=== PATIENT | male | born 1940 | race African-American/Black ===

== ENCOUNTER 2016-08-07 12:21 | Observation (INO) | payer OTHER ==
[2016-08-07] VITALS (11 sets, daily range): BP systolic 98–196; BP diastolic 61–103; PULSE 52–80; RESP 16–18; TEMP 97.7–98.4; O2SAT 98–100
[~2016-08-07] VITALS: Ht 193 cm; Wt 83.5 kg
[~2016-08-07 12:21] MED LIST: LISI-360 PO; LORA0.5T PO
[2016-08-07] MEDS ORDERED: LISI-515 PO (14:01)
[2016-08-07] MEDS ORDERED: PARO40TA2 PO (14:01)
[2016-08-07] MEDS ORDERED: LORA-373 PO (14:01)
--- NOTE | 2016-08-07 14:24 | PD ---
HPI Chief Complaint: Cardiac Complaint Time Seen by Provider: 14:19 Travel History International Travel<30 days: No Contact w/Intl Traveler<30days: No Traveled to known affect area: No History of Present Illness HPI 76-year-old male presents to the emergency department for evaluation of left- sided chest pain that has been intermittent over the past 2-3 months, but has become more frequent and worse over the past week. The patient reports intermittent dizziness and weakness as well, but denies any at this time. He has no chest pain at this time. Patient states that he uses Flonase nasal spray which will help his dizziness. Patient denies any shortness of breath. No abdominal pain. No nausea, vomiting, diarrhea. No radiation of the pain. He states he had similar pain a couple of years ago and had a Holter monitor by a case maker with the PA. He denies any recent stress test or cardiac catheterization. He does have history of hypertension, depression, anxiety. Patient had varicose veins removed from the bilateral lower extremities in May. No recent travel. No hemoptysis. No history of DVT or PE. Patient states that his chest pain is not brought on by movement and cannot recall any exacerbating factors. No leg edema. No fevers. Patient denies any history of DC or CHF. PFSH Past Medical History Arthritis: Yes Anxiety: Yes Cardiovascular Problems: Yes Chest Pain: Yes Diminished Hearing: No Genitourinary: Yes (PROSTATE) Hypertension: Yes Tetanus Vaccination: > 5 Years Influenza Vaccination: Yes Past Surgical History Genitourinary Surgery: Yes (PROSTATE) Social History Alcohol Use: No Tobacco Use: No Substance Use: No Allergies-Medications (Allergen,Severity, Reaction): Coded Allergies: No Known Allergies (Unverified , 08/07/16) Reported Meds & Prescriptions Reported Meds & Active Scripts Active Reported Paroxetine (Paroxetine HCl) 40 Mg Tab 40 Mg PO HS Lisinopril 20 Mg Tab 20 Mg PO HS Lorazepam 0.5 Mg Tab 0.5 Mg PO BID PRN Review of Systems Except as stated in HPI: all other systems reviewed are Neg Physical Exam Narrative GENERAL: Well-nourished, well-developed male patient, afebrile. SKIN: Focused skin assessment warm/dry. HEAD: Normocephalic. Atraumatic. ENT: Mucosa pink and moist. No erythema or exudates. No uvular edema. No uvular , palatal, or tonsillar deviation. Airway patent. Bilateral tympanic membranes are clear without erythema or perforation. EYES: No scleral icterus. No injection or drainage. NECK: Supple, trachea midline. No JVD or lymphadenopathy. CARDIOVASCULAR: Regular rate and rhythm without murmurs, gallops, or rubs. RESPIRATORY: Breath sounds equal bilaterally. No accessory muscle use. Lungs sounds are clear to auscultation. GASTROINTESTINAL: Abdomen soft, non-tender, nondistended. MUSCULOSKELETAL: No cyanosis, or edema. BACK: Nontender without obvious deformity. No CVA tenderness. NEUROLOGICAL: Awake and alert. Cranial nerves II through XII intact. Motor and sensory grossly within normal limits. Five out of 5 muscle strength in all muscle groups. Normal speech. Data Data Last Documented VS Vital Signs Date Time Temp Pulse Resp B/P Pulse Ox O2 Delivery O2 Flow Rate FiO2 08/07/16 15:24 67 16 186/94 100 Room Air 08/07/16 12:23 98.2 Orders Electrocardiogram (08/07/16 ) Basic Metabolic Panel (Bmp) (08/07/16 14:18) Ckmb (Isoenzyme) Profile (08/07/16 14:18) Complete Blood Count With Diff (08/07/16 14:18) Magnesium (Mg) (08/07/16 14:18) Troponin I (08/07/16 14:18) Chest, Single Ap (08/07/16 14:18) Ecg Monitoring (08/07/16 14:18) Bilateral Bp Monitoring (08/07/16 14:18) Iv Access Insert/Monitor (08/07/16 14:18) Oximetry (08/07/16 14:18) Oxygen Administration (08/07/16 14:18) Aspirin Chew (Aspirin Chew) (08/07/16 14:30) Sodium Chloride 0.9% Flush (Ns Flush) (08/07/16 14:30) Labs Laboratory Tests Test 08/07/16 14:20 White Blood Count 4.2 TH/MM3 Red Blood Count 4.51 MIL/MM3 Hemoglobin 13.4 GM/DL Hematocrit 39.3 % Mean Corpuscular Volume 87.1 FL Mean Corpuscular Hemoglobin 29.6 PG Mean Corpuscular Hemoglobin 34.0 % Concent Red Cell Distribution Width 14.1 % Platelet Count 149 TH/MM3 Mean Platelet Volume 8.5 FL Neutrophils (%) (Auto) 67.7 % Lymphocytes (%) (Auto) 22.8 % Monocytes (%) (Auto) 8.2 % Eosinophils (%) (Auto) 0.8 % Basophils (%) (Auto) 0.5 % Neutrophils # (Auto) 2.8 TH/MM3 Lymphocytes # (Auto) 1.0 TH/MM3 Monocytes # (Auto) 0.3 TH/MM3 Eosinophils # (Auto) 0.0 TH/MM3 Basophils # (Auto) 0.0 TH/MM3 CBC Comment DIFF FINAL Differential Comment Sodium Level 142 MEQ/L Potassium Level 4.3 MEQ/L Chloride Level 107 MEQ/L Carbon Dioxide Level 31.5 MEQ/L Anion Gap 4 MEQ/L Blood Urea Nitrogen 15 MG/DL Creatinine 1.29 MG/DL Estimat Glomerular Filtration 66 ML/MIN Rate Random Glucose 87 MG/DL Calcium Level 8.8 MG/DL Magnesium Level 2.4 MG/DL Total Creatine Kinase 90 U/L Troponin I LESS THAN 0.02 NG/ML MDM Medical Decision Making Medical Screen Exam Complete: Yes Emergency Medical Condition: Yes Medical Record Reviewed: Yes Interpretation(s) Last Impressions Chest X-Ray 08/07/16 1418 Signed Impressions: Service Date/Time: Sunday, August 07, 2016 14:27 - CONCLUSION: No acute disease. Rufino Roldan MD FACR Differential Diagnosis ACS vs. chest wall pain vs. anxiety vs. electrolyte abnormality vs. PNA Narrative Course 76 year old male presents to the emergency department for evaluation of intermittent left sided chest pain over the past 2-3 months. EKG shows Sinus bradycardia, HR 56, with a right BBB. CBC, BMP, magnesium, CK, troponin are ordered and pending. Chest x-ray is ordered and pending. Patient is given ASA 162 mg PO. CBC shows no acute abnormality. BMP shows no acute abnormality. Magnesium is 2.4. CK is 90. Troponin is less than 0.02. Chest x-ray shows no acute disease. I discussed the case with my attending physician, Dr. Méndez, who agrees with plan and disposition. Patient will be admitted the chest pain center for further evaluation. The patient agrees to this. Diagnosis Primary Impression: Chest pain Qualified Code: R07.9 - Chest pain, unspecified type Admitting Information Admitting Physician Requests: Observation Roxana Cardona Aug 07, 2016 14:24
[2016-08-07] MEDS ORDERED: SODIUM CHLORIDE 0.9% FLUSH 10 ML FLUSH IVF PRN (14:30)
[2016-08-07] MEDS ORDERED: ASPIRIN 81 MG CHEW TAB PO ONE (14:30)
[2016-08-07 15:11] LABS: AUTOMATED NEUTROPHIL # 2.8 TH/MM3 (1.8-7.7); BASOPHIL % 0.5 % (0.0-2.0); EOSINOPHIL % 0.8 % (0.0-4.0); HEMATOCRIT 39.3 % (39.0-51.0); HEMO FLAGS DIFF FINAL; LYMPH % 22.8 % (9.0-44.0); MEAN CELL VOLUME 87.1 FL (80.0-100.0); MEAN CORPUSCULAR HEMOGLOBIN 29.6 PG (27.0-34.0); MONO % 8.2 % (0.0-8.0); NEUT % 67.7 % (16.0-70.0); PLATELET COUNT 149 TH/MM3 (150-450); RED BLOOD COUNT 4.51 MIL/MM3 (4.50-5.90); RED CELL DISTRIBUTION WIDTH 14.1 % (11.6-17.2); WHITE BLOOD COUNT 4.2 TH/MM3 (4.0-11.0)
--- NOTE | 2016-08-07 15:12 | RADRPT ---
EXAM DATE/TIME: 08/07/2016 14:27 [facility] COMPARISON: CHEST SINGLE AP, November 30, 2012, 9:46. INDICATIONS : Chest pain. MEDICAL HISTORY : Hypertension. SURGICAL HISTORY : None. ENCOUNTER: Initial ACUITY: 4 - 6 months PAIN SCORE: 8/10 LOCATION: Bilateral chest FINDINGS: A single view of the chest demonstrates the lungs to be symmetrically aerated without evidence of mas s, infiltrate or effusion. The cardiomediastinal contours are unremarkable. Osseous structures are intact. CONCLUSION: No acute disease. Rufino Roldan MD FACR on August 07, 2016 at 15:10 Board Certified Radiologist. This report was verified electronically.
[2016-08-07 15:29] LABS: ANION GAP 4 MEQ/L (5-15); BICARBONATE 31.5 MEQ/L (21.0-32.0); BLOOD UREA NITROGEN 15 MG/DL (7-18); CHLORIDE 107 MEQ/L (98-107); GLOMERULAR FILTRATION RATE 66 ML/MIN (>89); MAGNESIUM 2.4 MG/DL (1.5-2.5); POTASSIUM 4.3 MEQ/L (3.5-5.1); SODIUM (NA) 142 MEQ/L (136-145)
[2016-08-07 15:39] LABS: CREATINE KINASE 90 U/L (39-308)
[2016-08-07] MEDS ORDERED: cloNIDine HCL 0.1 MG TAB PO PRN (16:45)
[2016-08-07] MEDS ORDERED: LORazepam 0.5 MG TAB PO PRN (16:45)
--- NOTE | 2016-08-07 16:50 | HHI.HP ---
[facility] Primary Care Physician Awa Whipple MD Chief Complaint Chest pain History of Present Illness This is a 76-year-old male that presents to the ED via private vehicle with his with a complaint of 2 years of essentially daily chest discomfort. It can occur once a day or can occur several times a day. He describes a sharp left- sided chest discomfort that will last several seconds. It is not related to exertion. He had an episode 3 or 4 days ago where he felt like he was about to pass out while he was at the store. This concerned him and he discussed it with his who prompted him to come to the ED today. He does not have associated shortness of breath, nausea, or diaphoresis. He has discussed this with his primary care physician Dr. Whipple who tell him that things are okay and to continue taking his medications. He has hypertension. A few weeks ago he began having hypotension all taking lisinopril 20 mg daily in the evening and amlodipine 5 mg daily. His amlodipine was discontinued however now he has been hypertensive averaging in the 180s. He has not discuss this with his primary care physician. He cannot recall having a prior stress test but states he had a Holter monitor about 5 years ago at the [facility] and believes that it was okay. Denies recent illnesses. Denies fevers or chills. Review of Systems General: Patient denies fevers, chills recent, and recent travel HEENT: Patient denies headache, sore throat, difficulty swallowing. Cardiovascular: Has the chest discomfort as mentioned above. Denies sensation of heart beating rapidly or irregularly. No syncope. He had a episode 3 or 4 days ago while at the store where he felt he could have passed out. Respiratory: Denies shortness of breath or inspirational chest discomfort. Denies coughing wheezing or hemoptysis. GI: Patient denies nausea, vomiting, diarrhea, abdominal pain, bloody stools. Musculoskeletal: Patient denies joint pain or edema. Denies calf pain or edema. Neurovascular: Patient denies numbness, tingling, weakness in extremities. Denies headache. Endocrine: Denies polyuria and polydipsia. Hematologic: Denies easy bruising. Skin: Denies rash or itching. Past Family Social History Allergies: Coded Allergies: No Known Allergies (Unverified , 08/07/16) Past Medical History Hypertension, neuropathy in feet. Denies hyperlipidemia, CAD, and diabetes. Past Surgical History Noncontributory. Reported Medications Reported Meds & Active Scripts Active Reported Paroxetine (Paroxetine HCl) 40 Mg Tab 40 Mg PO HS Lisinopril 20 Mg Tab 20 Mg PO HS Lorazepam 0.5 Mg Tab 0.5 Mg PO BID PRN Active Ordered Medications Current Medications Medications (Trade) Dose Ordered Sig/Maribel Route Start Time Stop Time Status Last Admin (NS Flush) 2 ml UNSCH PRN IVF 08/07/16 14:30 08/07/16 14:24 Family History Denies family history of CAD. Social History Patient quit smoking 55 years ago. He denies alcohol or illicit drugs. He is . Physical Exam Vital Signs Vital Signs Date Time Temp Pulse Resp B/P Pulse Ox O2 Delivery O2 Flow Rate FiO2 08/07/16 15:24 67 16 186/94 100 Room Air 08/07/16 14:24 100 Room Air 08/07/16 14:24 17 100 Room Air 08/07/16 14:20 58 17 180/103 100 Room Air 175/93 08/07/16 14:11 60 17 192/100 100 Room Air 08/07/16 14:07 58 17 99 Room Air 08/07/16 12:23 98.2 57 16 166/82 98 Physical Exam GENERAL: This is a well-nourished, well-developed patient, in no apparent distress. Patient speaks in clear complete sentences. Patient is pleasant. HEENT: Head is atraumatic and normocephalic. Neck is supple without lymphadenopathy and trachea is midline. No JVD or carotid bruits. CARDIOVASCULAR: Regular rate and rhythm without murmurs, gallops, or rubs. RESPIRATORY: Clear to auscultation. Breath sounds equal bilaterally. No wheezes , rales, or rhonchi. Chest wall is nontender. No use of accessory muscles. GASTROINTESTINAL: Abdomen is nontender, nondistended. Abdomen soft. No obvious pulsatile mass or bruit. No CVA tenderness. Strong femoral pulses bilaterally. Normal bowel sounds in all quadrants. MUSCULOSKELETAL: Patient is moving upper and lower extremities freely. No calf tenderness or edema, no Homans sign. Strong pulses in upper and lower extremities. NEUROLOGICAL: Patient is alert and oriented. Cranial nerves 2-12 are grossly intact. No focal deficits and speech is clear. SKIN: No rash and turgor is normal. Laboratory Laboratory Tests Test 08/07/16 14:20 White Blood Count 4.2 Red Blood Count 4.51 Hemoglobin 13.4 Hematocrit 39.3 Mean Corpuscular Volume 87.1 Mean Corpuscular Hemoglobin 29.6 Mean Corpuscular Hemoglobin 34.0 Concent Red Cell Distribution Width 14.1 Platelet Count 149 Mean Platelet Volume 8.5 Neutrophils (%) (Auto) 67.7 Lymphocytes (%) (Auto) 22.8 Monocytes (%) (Auto) 8.2 Eosinophils (%) (Auto) 0.8 Basophils (%) (Auto) 0.5 Neutrophils # (Auto) 2.8 Lymphocytes # (Auto) 1.0 Monocytes # (Auto) 0.3 Eosinophils # (Auto) 0.0 Basophils # (Auto) 0.0 CBC Comment DIFF FINAL Differential Comment Sodium Level 142 Potassium Level 4.3 Chloride Level 107 Carbon Dioxide Level 31.5 Anion Gap 4 Blood Urea Nitrogen 15 Creatinine 1.29 Estimat Glomerular Filtration 66 Rate Random Glucose 87 Calcium Level 8.8 Magnesium Level 2.4 Total Creatine Kinase 90 Troponin I LESS THAN 0.02 Result Diagram: 08/07/16 1420 08/07/16 1420 Imaging Last 48 hours Impressions Chest X-Ray 08/07/16 1418 Signed Impressions: Service Date/Time: Sunday, August 07, 2016 14:27 - CONCLUSION: No acute disease. Rufino Roldan MD FACR Course EKG has sinus bradycardia rate of 56 with a right bundle branch block. Assessment and Plan Assessment and Plan * Atypical chest pain: Patient will continue to have serial cardiac enzymes and EKGs for ruling out purposes. He will be seen by Dr. Young of cardiology in the chest pain center in the morning. He will likely of a stress test if he rules out. Patient states he can go on a treadmill so he will likely have a ETT or a nuclear ETT. Likely be discharged if the stress test is nonischemic with instructions to follow-up with his primary care physician. * Hypertension: Patient states that amlodipine in addition to the lisinopril was causing hypotension in the amlodipine was discontinued however lisinopril by itself is not working enough. He thinks he is on amlodipine 5 mg. We will continue his lisinopril and have Catapres when necessary. Further plan pending Dr. Young's evaluation but possibly a low-dose of amlodipine. Patient is stable at this time. He is agreeable to this plan. Rush Fitzgerald Aug 07, 2016 16:50
[2016-08-07] MEDS ORDERED: ACETAMINOPHEN/HYDROcodone 325 MG/7.5 MG TAB PO PRN (17:00)
[2016-08-07] MEDS ORDERED: SODIUM CHLORIDE 0.9% FLUSH 5 ML FLUSH IVF PRN (17:00)
[2016-08-07] MEDS ORDERED: ACETAMINOPHEN 500 MG CPLT PO PRN (17:00)
[2016-08-07] MEDS ORDERED: ONDANSETRON HCL 4 MG/2 ML VIAL IV PRN (17:00)
[2016-08-07] MEDS: PANTOPRAZOLE SOD 40 MG DELAYED RELEASE TAB PO SCH (17:20)
[2016-08-07 18:15] LABS: CREATINE KINASE 94 U/L (39-308)
[2016-08-07] MEDS ORDERED: PARoxetine HCL 20 MG TAB PO SCH (21:00)
[2016-08-07] MEDS ORDERED: LISINOPRIL 20 MG TAB PO SCH (21:00)
[2016-08-07] MEDS: SODIUM CHLORIDE 0.9% FLUSH 5 ML FLUSH IVF SCH (21:00)
[2016-08-07 21:38] LABS: CREATINE KINASE 80 U/L (39-308)
[2016-08-08 07:39] VITALS: BP 161/87; PULSE 61; RESP 22; TEMP 98.3; O2SAT 99
[2016-08-08] MEDS: PANTOPRAZOLE SOD 40 MG DELAYED RELEASE TAB PO SCH (07:57)
[2016-08-08] MEDS: SODIUM CHLORIDE 0.9% FLUSH 5 ML FLUSH IVF SCH (07:58)
--- NOTE | 2016-08-08 08:00 | EKG ---
Date Performed: 08/07/2016 Time Performed: 14:08:22 PTAGE: 76 years EKG: SINUS BRADYCARDIA RIGHT BUNDLE BRANCH BLOCK ABNORMAL ECG Since PREVIOUS TRACING , no significant change noted PREVIOUS TRACIN11/30/2012 09.59 DOCTOR: Jeane Young Interpretating Date/Time 08/08/2016 07:59:36
--- NOTE | 2016-08-08 08:00 | EKG ---
Date Performed: 08/07/2016 Time Performed: 17:28:22 PTAGE: 76 years EKG: SINUS BRADYCARDIA WITH SINUS ARRHYTHMIA RIGHT BUNDLE BRANCH BLOCK ABNORMAL ECG Since PREVIOUS TRACING , no significant change noted PREVIOUS TRACIN08/07/2016 14.08 DOCTOR: Jeane Young Interpretating Date/Time 08/08/2016 08:00:00
--- NOTE | 2016-08-08 08:00 | EKG ---
Date Performed: 08/07/2016 Time Performed: 20:47:03 PTAGE: 76 years EKG: SINUS BRADYCARDIA RIGHT BUNDLE BRANCH BLOCK ABNORMAL ECG Since PREVIOUS TRACING , no significant change noted PREVIOUS TRACIN08/07/2016 17.28 DOCTOR: Jeane Young Interpretating Date/Time 08/08/2016 08:00:11
[2016-08-08] MEDS ORDERED: ASPIRIN 325 MG TAB PO SCH (09:00)
[2016-08-08] MEDS ORDERED: AMLO5TAB2 PO (10:21)
--- NOTE | 2016-08-08 10:22 | HHI.DCPOC ---
Discharge Care Plan Diagnosis: (1) Atypical chest pain (2) Hypertension (3) Dehydration symptoms Goals to Promote Your Health * To prevent worsening of your condition and complications * To maintain your health at the optimal level Directions to Meet Your Goals Take your medications as prescribed Follow your dietary instruction Follow activity as directed Keep your appointments as scheduled Take your immunizations and boosters as scheduled If your symptoms worsen call your PCP, if no PCP go to Urgent Care Center or Emergency Room Smoking is Dangerous to Your Health. Avoid second hand smoke Call the 24-hour hour crisis hotline for domestic abuse at Karli Dash Aug 08, 2016 10:22
--- NOTE | 2016-08-08 16:36 | TR ---
Date Performed: 08/08/2016 Time Performed: 09:25:04 DOCTOR: Jeane Young DRUG LIST: CLINICAL HISTORY: REASON FOR TEST: REASON FOR ENDING: OBSERVATION: CONCLUSION: Ellis protocol attempted, grade increase in stage 3 to 16%. Stopped sec to leg fatig ue. Maximum GI=206 Target HR Achieved=80.0%( computer did not calcculate correctly). Maximum OX=790/6 8 Total Exercise Time=8:05. Good exercise tolerance. No st t segment changes to suggest schemia. Occa ssional PACs. Normal bp response. Recovery quick and unremarkable. COMMENTS:
== END 2016-08-08 11:54 | disposition home or self-care (01) ==
LOC: NEPE 12:21 → NEDA 15:49 → NEPFCDU 17:44
PROVIDERS: ADMIT Internal Medicine Cardiovascular Disease; ATTEND Internal Medicine Cardiovascular Disease
DX: R07.89 Other chest pain (principal); I10 Essential (primary) hypertension; G62.9 Polyneuropathy, unspecified; F41.9 Anxiety disorder, unspecified; Z87.891 Personal history of nicotine dependence
CPT/HCPCS: 71010; 80048; 82550; 83735; 84484; 85025; 93005; 93017; 99285; G0378

== ENCOUNTER 2017-04-21 13:03 | Emergency (ER) | payer OTHER ==
[~2017-04-21] VITALS: Ht 193 cm; Wt 81.5 kg
[~2017-04-21 13:03] MED LIST changes: +AMLO5TAB2 PO; -LISI-360 PO; +LISI-515 PO; +PARO40TA2 PO
[2017-04-21] MEDS ORDERED: IOHEXOL 350 MG/ML 10 ML VIAL (for RAD DIAG) IVCONTRAST ONE (13:04)
[2017-04-21 13:36] VITALS: BP_SYST 181; BP_SYST 194; BP_DIAS 103; BP_DIAS 99; PULSE 67; RESP 16; TEMP 98; O2SAT 96
[2017-04-21] MEDS ORDERED: LISI-515 PO (13:56)
[2017-04-21] MEDS ORDERED: FLUT55AE INH (13:56)
[2017-04-21] MEDS ORDERED: OMEP20TA93 PO (13:56)
[2017-04-21] MEDS ORDERED: MIRTA15 PO (13:56)
--- NOTE | 2017-04-21 14:10 | PD ---
HPI Chief Complaint: Hypertension Time Seen by Provider: 14:05 Travel History International Travel<30 days: No Contact w/Intl Traveler<30days: No Traveled to known affect area: No History of Present Illness HPI Patient is here for BP control. His primary care Dr. Whipple prescribed amlodipine 5 mg which he took today FOR FIRST TIME. Noted that his systolic blood pressure was still above 180 and was advised to come in. Patient denies any acute headache, chest pain, back pain, abdominal pain, nausea, vomiting, or diarrhea. Also denies any rash. The patient denies any dizziness or lightheadedness or any trouble with his vision. Patient at present time has actually no complaint whatsoever if not for checking his blood pressure and seen that he was between 180 and 200s on a regular basis despite taking his lisinopril and amlodipine as indicated by Dr. Whipple No known drug allergies Past medical history significant for hypertension anxiety prostate enlargement Surgical history significant only for orthopedic back surgery PFSH Past Medical History Arthritis: Yes Anxiety: Yes Heart Rhythm Problems: Yes Cardiac Catheterization: No Cardiovascular Problems: Yes (chest pain today, has a hx of similar pains) High Cholesterol: No Chest Pain: Yes Congestive Heart Failure: No Diabetes: No Diminished Hearing: No Genitourinary: Yes (PROSTATE) Hypertension: Yes Tetanus Vaccination: Unknown Influenza Vaccination: Yes Past Surgical History Coronary Artery Bypass Graft: No Genitourinary Surgery: Yes (PROSTATE) Social History Alcohol Use: No Tobacco Use: No Substance Use: No Allergies-Medications (Allergen,Severity, Reaction): Coded Allergies: No Known Allergies (Unverified Adverse Reaction, Unknown, 04/21/17) Reported Meds & Prescriptions Reported Meds & Active Scripts Active Amlodipine (Amlodipine Besylate) 5 Mg Tab 5 Mg PO DAILY Reported Mirtazapine 15 Mg Tab 15 Mg PO HS Omeprazole 20 Mg Tab 20 Mg PO DAILY [place] Respiclick Inh (Fluticasone Propionate) 55 Mcg/Actuation Aer.pow.ba 55 Mg INH BID Lisinopril 20 Mg Tab 20 Mg PO BID Paroxetine (Paroxetine HCl) 40 Mg Tab 40 Mg PO HS Lorazepam 0.5 Mg Tab 0.5 Mg PO BID PRN Review of Systems Except as stated in HPI: all other systems reviewed are Neg General / Constitutional: No: Fever Eyes: No: Visual changes HENT: No: Headaches Cardiovascular: No: Chest Pain or Discomfort Respiratory: No: Shortness of Breath Gastrointestinal: No: Abdominal Pain Genitourinary: No: Dysuria Musculoskeletal: No: Pain Skin: No Rash Neurologic: No: Weakness Psychiatric: No: Depression Endocrine: No: Polydipsia Hematologic/Lymphatic: No: Easy Bruising Physical Exam Narrative GENERAL: SKIN: Warm and dry. HEAD: Atraumatic. Normocephalic. EYES: Pupils equal and round. No scleral icterus. No injection or drainage. ENT: No nasal bleeding or discharge. Mucous membranes pink and moist. NECK: Trachea midline. No JVD. CARDIOVASCULAR: Regular rate and rhythm. RESPIRATORY: No accessory muscle use. Clear to auscultation. Breath sounds equal bilaterally. GASTROINTESTINAL: Abdomen soft, non-tender, nondistended. MUSCULOSKELETAL: Extremities without clubbing, cyanosis, or edema. No obvious deformities. NEUROLOGICAL: Awake and alert. No obvious cranial nerve deficits. Motor grossly within normal limits. Five out of 5 muscle strength in the arms and legs. Normal speech. PSYCHIATRIC: Appropriate mood and affect; insight and judgment normal. Data Data Last Documented VS Vital Signs Date Time Temp Pulse Resp B/P (MAP) Pulse Ox O2 Delivery O2 Flow Rate FiO2 04/21/17 17:15 78 16 176/90 (118) 98 Room Air 04/21/17 13:36 98.0 Orders Orders B-Type Natriuretic Peptide (04/21/17 14:28) Ckmb (Isoenzyme) Profile (04/21/17 14:28) Complete Blood Count With Diff (04/21/17 14:28) Comprehensive Metabolic Panel (04/21/17 14:28) Prothrombin Time / Inr (Pt) (04/21/17 14:28) Act Partial Throm Time (Ptt) (04/21/17 14:28) Troponin I (04/21/17 14:28) Lipase (04/21/17 14:28) Ecg Monitoring (04/21/17 14:28) Bilateral Bp Monitoring (04/21/17 14:28) Iv Access Insert/Monitor (04/21/17 14:28) Oximetry (04/21/17 14:28) Oxygen Administration (04/21/17 14:28) Cta Thor Abd Aorta W Iv C W3d (04/21/17 14:28) Hydralazine Inj (Apresoline Inj) (04/21/17 14:30) CKMB (04/21/17 14:44) CKMB% (04/21/17 14:44) Hydralazine Inj (Apresoline Inj) (04/21/17 17:15) Clonidine (Catapres) (04/21/17 17:15) Iohexol 350 Inj (Omnipaque 350 Inj) (04/21/17 13:04) Labs Laboratory Tests Test 04/21/17 14:44 White Blood Count 3.1 TH/MM3 Red Blood Count 4.43 MIL/MM3 Hemoglobin 13.4 GM/DL Hematocrit 38.2 % Mean Corpuscular Volume 86.1 FL Mean Corpuscular Hemoglobin 30.2 PG Mean Corpuscular Hemoglobin Concent 35.1 % Red Cell Distribution Width 14.4 % Platelet Count 166 TH/MM3 Mean Platelet Volume 8.6 FL Neutrophils (%) (Auto) 64.5 % Lymphocytes (%) (Auto) 23.7 % Monocytes (%) (Auto) 10.8 % Eosinophils (%) (Auto) 0.2 % Basophils (%) (Auto) 0.8 % Neutrophils # (Auto) 2.0 TH/MM3 Lymphocytes # (Auto) 0.7 TH/MM3 Monocytes # (Auto) 0.3 TH/MM3 Eosinophils # (Auto) 0.0 TH/MM3 Basophils # (Auto) 0.0 TH/MM3 CBC Comment DIFF FINAL Differential Comment Prothrombin Time 11.6 SEC Prothromb Time International Ratio 1.1 RATIO Activated Partial Thromboplast Time 30.8 SEC Blood Urea Nitrogen 17 MG/DL Creatinine 1.32 MG/DL Random Glucose 79 MG/DL Total Protein 7.3 GM/DL Albumin 3.7 GM/DL Calcium Level 9.0 MG/DL Alkaline Phosphatase 77 U/L Aspartate Amino Transf (AST/SGOT) 20 U/L Alanine Aminotransferase (ALT/SGPT) 14 U/L Total Bilirubin 1.0 MG/DL Sodium Level 141 MEQ/L Potassium Level 3.6 MEQ/L Chloride Level 106 MEQ/L Carbon Dioxide Level 30.4 MEQ/L Anion Gap 5 MEQ/L Estimat Glomerular Filtration Rate 64 ML/MIN Total Creatine Kinase 215 U/L Creatine Kinase MB 2.8 NG/ML Troponin I LESS THAN 0.02 NG/ML B-Type Natriuretic Peptide 33 PG/ML Lipase 64 U/L [facility] Medical Decision Making Medical Screen Exam Complete: Yes Emergency Medical Condition: Yes Medical Record Reviewed: Yes Differential Diagnosis Hypertensive emergency versus hypertensive urgency versus accelerated hypertension Narrative Course Coagulation profile is within normal limits CBC shows a WBC of 3.1 no evidence of anemia, normal platelet count of 166,000 and no evidence of any left shift. Complete metabolic profile reveals a normal electrolytes, decreased kidney function showing a creatinine of 1.32 and a GFR 64. Normal liver functions normal lipase negative beta natruretic peptide and a negative troponin and CK-MB Diagnosis Primary Impression: Accelerated hypertension Patient Instructions: Chronic Hypertension (ED), General Instructions Additional Instructions: CONTINUE TAKING YOUR NORVASC/AMLODIPINE DIRECTED AND ALLOW AT LEAST 48 HOURS FOR FULL EFFECT TO BEGIN, BEFORE MAKING ANY CHANGES TO THE DOSAGE. TODAY YOUR CAT SCAN OF CHEST/ABDOMEN DID NOT SHOW ANEURYSM OR DISSECTION. Disposition: 01 DISCHARGE HOME Condition: Stable Ayush Alonso MD Apr 21, 2017 14:10
[2017-04-21] MEDS ORDERED: hydrALAZINE HCL 20 MG/ML VIAL IV PUSH ONE ×2 (14:30→17:15)
[2017-04-21 14:31] VITALS: BP_SYST 198; BP_SYST 221; BP_DIAS 103; BP_DIAS 113; PULSE 83; RESP 19; O2SAT 98
[2017-04-21 15:03] LABS: BASOPHIL % 0.8 % (0.0-2.0); EOSINOPHIL % 0.2 % (0.0-4.0); HEMATOCRIT 38.2 % (39.0-51.0); HEMOGLOBIN 13.4 GM/DL (13.0-17.0); LYMPH % 23.7 % (9.0-44.0); LYMPHOCYTE # 0.7 TH/MM3 (1.0-4.8); MEAN CELL VOLUME 86.1 FL (80.0-100.0); MEAN CORPUSCULAR HEMOGLOBIN 30.2 PG (27.0-34.0); MEAN CORPUSCULAR HGB CONC 35.1 % (32.0-36.0); MEAN PLATELET VOLUME 8.6 FL (7.0-11.0); MONO % 10.8 % (0.0-8.0); MONOCYTE # 0.3 TH/MM3 (0-0.9); NEUT % 64.5 % (16.0-70.0); PLATELET COUNT 166 TH/MM3 (150-450); RED BLOOD COUNT 4.43 MIL/MM3 (4.50-5.90); RED CELL DISTRIBUTION WIDTH 14.4 % (11.6-17.2); WHITE BLOOD COUNT 3.1 TH/MM3 (4.0-11.0)
[2017-04-21 15:04] VITALS: BP 162/83; PULSE 68; RESP 17; O2SAT 100
[2017-04-21 15:18] LABS: INTERNATIONAL NORMALIZED RATIO 1.1 RATIO; PROTHROMBIN TIME - PATIENT 11.6 SEC (9.8-11.6)
[2017-04-21 15:27] LABS: ALBUMIN 3.7 GM/DL (3.4-5.0); ALT (GPT) 14 U/L (12-78); AST (GOT) 20 U/L (15-37); BICARBONATE 30.4 MEQ/L (21.0-32.0); BLOOD UREA NITROGEN 17 MG/DL (7-18); CHLORIDE 106 MEQ/L (98-107); CREATININE 1.32 MG/DL (0.60-1.30); GLOMERULAR FILTRATION RATE 64 ML/MIN (>89); GLUCOSE,RANDOM 79 MG/DL (74-106); SODIUM (NA) 141 MEQ/L (136-145)
[2017-04-21 15:31] LABS: ALKALINE PHOSPHATASE 77 U/L (45-117); TOTAL PROTEIN 7.3 GM/DL (6.4-8.2); TROPONIN I LESS THAN 0.02 NG/ML (0.02-0.05)
[2017-04-21 17:15] VITALS: BP 176/90; PULSE 78; RESP 16; O2SAT 98
[2017-04-21] MEDS ORDERED: cloNIDine HCL 0.1 MG TAB PO ONE (17:15)
--- NOTE | 2017-04-21 18:34 | RADRPT ---
EXAM DATE/TIME: 04/21/2017 17:59 [place] COMPARISON: CHEST SINGLE AP, August 07, 2016, 14:27. INDICATIONS : Hypertension, unequal arm blood pressures. IV CONTRAST: 100 cc Omnipaque 350 (iohexol) IV RADIATION DOSE: 6.78 CTDIvol (mGy) MEDICAL HISTORY : Cardiovascular disease. Hypertension. Benign prostatic hyperplasia, (BPH) SURGICAL HISTORY : None. ENCOUNTER: Initial ACUITY: 1 day PAIN SCALE: 0/10 LOCATION: Bilateral chest TECHNIQUE: Volumetric scanning was performed using a multi-row detector CT scanner. The data was post processed with a variety of visualization algorithms including full volume maximum intensity projection, multi -planar sliding thin slab reformation, curved planar reformation, and surface rendering techniques. Using automated exposure control and adjustment of the mA and/or kV according to patient size, radiat ion dose was kept as low as reasonably achievable to obtain optimal diagnostic quality images. DICOM format image data is available electronically for review and comparison. FINDINGS: LUNGS: There is no consolidation or pneumothorax. No concerning pulmonary nodule is visualized. No pleural fluid is present. MEDIASTINUM: No abnormally enlarged lymph nodes by CT criteria. No axillary or hilar abnormalities are identified. ABDOMEN: The liver and spleen are free of focal defects. The gallbladder and pancreas demonstrate no abnormali ty. The adrenal glands are normal. The kidneys demonstrate no evidence of solid renal mass or hydrone phrosis. No free fluid or abdominal masses are identified. No para-aortic adenopathy is seen. Right p osterior bladder diverticulum measuring 1.9 cm. Small fat-containing right inguinal hernia. PELVIS: No evidence of free fluid or pelvic mass. No abnormally enlarged inguinal or retroperitoneal lymph no mikel are present. The bladder is unremarkable. THORACIC AORTA: The thoracic aortic root is normal with normal branching of the great vessels. There is no evidence of aneurysm or dissection. ABDOMINAL AORTA: Scattered atherosclerotic calcifications. No aneurysm. PELVIC VESSELS: The internal iliac and external iliac vessels are patent without aneurysm or stenosis. CONCLUSION: 1. No evidence for aneurysm or aortic dissection. Guillaume Nunes MD on April 21, 2017 at 18:31 Board Certified Radiologist. This report was verified electronically.
== END 2017-04-21 19:15 | disposition home or self-care (01) ==
LOC: NEPC 13:03
DX: I10 Essential (primary) hypertension (principal); I25.10 Atherosclerotic heart disease of native coronary artery without angina pectoris; N40.0 Benign prostatic hyperplasia without lower urinary tract symptoms; M19.90 Unspecified osteoarthritis, unspecified site; F41.9 Anxiety disorder, unspecified; Z79.899 Other long term (current) drug therapy
CPT/HCPCS: 71275; 74174; 80053; 82550; 82552; 83690; 83880; 84484; 85025; 85610; 85730; 96374; 96376; 99284; J0360; Q9967